=== PATIENT | male | born 1950 | race Two or more races ===

== ENCOUNTER 2024-03-01 09:15 | Day surgery (SDC) | payer OTHER ==
[2024-02-27 10:18] LABS: PH,URINE 6.5 (5.0-8.0); URINE BILIRRUBIN Negative (NEGATIVE); URINE BLOOD Negative; URINE COLOR Yellow; URINE GLUCOSE Negative (NEGATIVE); URINE LEUKOCYTE Small; URINE NITRATE Negative; URINE PROTEIN Negative (NEGATIVE); URINE UROBILINOGEN 0.2 E.U./dl
[2024-02-27 10:22] LABS: URINE BACTERIA 287.2 uL (0.0-1933); URINE RBC 5.6 uL (0.0-20.8); URINE WBC 96.3 uL (0.0-23.2)
[2024-02-27 10:29] LABS: HEMATOCRIT 36.4 % (39.0-48.0); HEMOGLOBIN 12.2 g/dL (13-16.00); MEAN CELL VOLUME 93.5 fL (80.0-100.00); MEAN CORPUSCULAR HEMOGLOBIN 31.5 pg (27.00-32.0); MEAN CORPUSCULAR HGB CONC 33.7 g/dl (32.0-36.0); PLATELET COUNT 325 K/uL (150-450); RED BLOOD COUNT 3.89 M/uL (4.00-6.00)
[2024-02-27 10:50] LABS: INR 1.01; PARTIAL THROMBOPLASTIN TIME 29.7 SECONDS (22.0-34.0); PROTHROMBIN TIME 10.6 SECONDS (9.0-11.5)
[2024-02-27 10:54] LABS: CALCIUM 9.3 mg/dL (8.5-10.1); CREATININE SERUM 1.55 mg/dL (0.70-1.30); GFR 44.05; POTASSIUM 4.43 mEq/L (3.5-5.1)
[2024-02-27 12:42] LABS: URINE APPEARANCE CLEAR
[~2024-03-01 09:15] MED LIST: AVAPRO300 MG PO; BAYER CHILDREN'81 MG PO; GLIPIZIDE XL5 MG PO; GRALISE600 MG PO; METFORMIN HCL500 M3 PO; VERELAN PM200 MG PO
[2024-03-01] MEDS ORDERED: CEFTRIAXONE SODIUM 2,000 MG VIAL ONE (11:05)
[2024-03-01] MEDS ORDERED: VANCOMYCIN HCL 1,000 MG VIAL ONE (11:05)
[2024-03-01] MEDS ORDERED: IOVERSOL 320 MG/ML - 50 ML VIAL IV ONE ×2 (17:25→18:30)
[2024-03-01] MEDS ORDERED: CEFTRIAXONE SODIUM 2,000 MG in 0.9 % SODIUM CHLORIDE 50 ML IV ONE (18:30)
[2024-03-01] MEDS ORDERED: VANCOMYCIN HCL 1,000 MG in 0.9 % SODIUM CHLORIDE 250 ML IV ONE (18:30)
[2024-03-01] MEDS ORDERED: TAMSULOSIN HCL 0.4 MG CAP PO ONE ×2 (20:00→20:14)
== END 2024-03-01 22:20 | disposition home or self-care (01) ==
LOC: CIR.AMB 09:15
PROVIDERS: ATTEND Urology
DX: N20.1 Calculus of ureter (principal); G62.9 Polyneuropathy, unspecified; M19.90 Unspecified osteoarthritis, unspecified site; G47.30 Sleep apnea, unspecified

== ENCOUNTER 2024-06-28 08:47 | Day surgery (SDC) | payer OTHER ==
[2024-06-24 12:35] VITALS: BP 135/74
[2024-06-24 13:08] LABS: PH,URINE 5.5 (5.0-8.0); URINE APPEARANCE Clear; URINE BILIRRUBIN Negative (NEGATIVE); URINE BLOOD Negative; URINE COLOR Yellow; URINE GLUCOSE Negative (NEGATIVE); URINE KETONE Negative (NEGATIVE); URINE LEUKOCYTE Trace; URINE NITRATE Negative; URINE PROTEIN Negative (NEGATIVE); URINE UROBILINOGEN 0.2 E.U./dl
[2024-06-24 13:10] LABS: URINE RBC 4.8 uL (0.0-20.8); URINE WBC 16.1 uL (0.0-23.2)
[2024-06-24 13:12] LABS: URINE BACTERIA 1.2 uL (0.0-1933); URINE CAST 0.61 uL (0.0-1.40)
[~2024-06-28] VITALS: Ht 170.2 cm; Wt 109.8 kg
[2024-06-28 11:09] LABS: RH POSITIVE
[2024-06-28] MEDS ORDERED: CILOSTAZOL100 MG (14:40)
[2024-06-28] MEDS ORDERED: PREGABALIN150 MG (14:40)
[2024-06-28] MEDS ORDERED: CEFTRIAXONE SODIUM 2,000 MG in 0.9 % SODIUM CHLORIDE 50 ML IV ONE (16:30)
[2024-06-28] MEDS ORDERED: IOVERSOL 320 MG/ML - 50 ML VIAL IV ONE (16:30)
[2024-06-28] MEDS ORDERED: MORPHINE SULFATE 2 MG/ML CARTRIDGE IV ONE (18:40)
[2024-06-28] MEDS ORDERED: PHENAZOPYRIDINE HCL 100 MG TABLET PO STA (19:00)
[2024-06-28] MEDS ORDERED: TAMSULOSIN HCL 0.4 MG CAP PO STA (19:00)
== END 2024-06-28 19:55 | disposition home or self-care (01) ==
LOC: CIR.AMB 08:47 → SURH 08:47 → O/R 08:47 → EDSTATUS 11:00 → SURH 11:00 → O/R 18:06 → SURH 18:06 → CIR.AMB 19:55
PROVIDERS: ATTEND Urology
DX: N20.1 Calculus of ureter (principal); N13.1 Hydronephrosis with ureteral stricture, not elsewhere classified

== ENCOUNTER 2024-07-12 11:46 | Inpatient (IN) | payer OTHER ==
[~2024-07-12] VITALS: Ht 170.2 cm; Wt 123.8 kg
[~2024-07-12 11:46] MED LIST changes: +CILOSTAZOL100 MG; +PREGABALIN150 MG
[2024-07-12] MEDS ORDERED: SODIUM CHLORIDE 0.45 % 500 ML IV STA (13:47)
[2024-07-12] MEDS ORDERED: ENOXAPARIN SODIUM 100 MG/ML SYRINGE SUBCUTANEO STA (13:55)
[2024-07-12 14:15] LABS: ABG PH 7.399 (7.35-7.45); ABG PO2 72.3 mmHg (80-100); ABG pCO2 45.1 mmHg (35-45); BASE EXCESS 1.9 mmol/l; BICARBONATE 27.3 mmol/l (23-25); SaO2 94.4 %; Tco2 28.6 mmol/l; o2 21 %
[2024-07-12 14:16] LABS: allen test SATISFACTORY; puncture site RADIAL RIGHT
[2024-07-12 14:25] LABS: HEMATOCRIT 36.5 % (39.0-48.0); HEMOGLOBIN 11.7 g/dL (13-16.00); MEAN CELL VOLUME 94.9 fL (80.0-100.00); MEAN CORPUSCULAR HEMOGLOBIN 30.5 pg (27.00-32.0); MEAN CORPUSCULAR HGB CONC 32.1 g/dl (32.0-36.0); PLATELET COUNT 432 K/uL (150-450); RED BLOOD COUNT 3.84 M/uL (4.00-6.00); RED CELL DISTRIBUTION WIDTH 14.4 % (11.5-14.5)
[2024-07-12 15:07] LABS: ALBUMIN 2.9 gm/dL (3.4-5.0); BILIRUBIN TOTAL 0.47 mg/dL (0.3-1.2); CALCIUM 9.7 mg/dL (8.5-10.1); CREATININE SERUM 1.23 mg/dL (0.70-1.30); GFR 57.36; GLOBULINA 4.6 G/DL (2.4-3.5); POTASSIUM 4.91 mEq/L (3.5-5.1); TOTAL PROTEIN 7.5 gm/dL (6.4-8.2)
[2024-07-12 15:34] LABS: INR 1.07; PROTHROMBIN TIME 11.6 SECONDS (9.0-11.5)
[2024-07-12 16:14] LABS: D DIMER 7.84 MG/L; PARTIAL THROMBOPLASTIN TIME 28.9 SECONDS (22.0-34.0)
[2024-07-12 16:38] LABS: URINE APPEARANCE Cloudy; URINE BILIRRUBIN Negative (NEGATIVE); URINE BLOOD Large; URINE COLOR Yellow; URINE GLUCOSE Negative (NEGATIVE); URINE KETONE Negative (NEGATIVE); URINE LEUKOCYTE Small; URINE NITRATE Negative; URINE PROTEIN 30 (NEGATIVE); URINE UROBILINOGEN 0.2 E.U./dl
[2024-07-12 16:40] LABS: URINE BACTERIA 42.8 uL (0.0-1933); URINE EPITHELIAL CELLS 13.1 uL (0.0-38.8); URINE RBC 891.3 uL (0.0-20.8); URINE WBC 24.1 uL (0.0-23.2)
[2024-07-12 17:34] LABS: URINE CAST 0.15 uL (0.0-1.40)
[2024-07-12] MEDS ORDERED: GABAPENTIN 600 MG TABLET PO SCH (18:07)
[2024-07-12] MEDS ORDERED: PIPERACILLIN/TAZOBACTAM SODIUM 3.375 GM in DEXTROSE 5 % IN WATER 100 ML IV SCH (18:11)
[2024-07-12] MEDS ORDERED: 0.9 % SODIUM CHLORIDE 1,000 ML IV SCH (18:15)
[2024-07-12] MEDS ORDERED: TRAMADOL HCL 50 MG TABLET PO PRN (18:15)
[2024-07-12] MEDS ORDERED: ACETAMINOPHEN 500 MG GEL..CAP PO PRN (18:15)
[2024-07-12 19:57] VITALS: BP 117/60
[2024-07-12] MEDS ORDERED: INSULIN LISPRO 1,000 UNIT/10 ML UNITS SUBCUTANEO PRN (22:15)
[2024-07-12] MEDS ORDERED: DEXTROSE 50 % IN WATER 0.5 G/ML DISP.SYRIN IV PRN (22:15)
[2024-07-12 22:21] VITALS: BP 183/80
[2024-07-13 01:53] VITALS: BP 145/83; O2SAT 97
[2024-07-13] MEDS ORDERED: ENOXAPARIN SODIUM 100 MG/ML SYRINGE SUBCUTANEO SCH (04:00)
[2024-07-13] MEDS ORDERED: VERAPAMIL HCL 120 MG TABLET PO SCH (09:00)
[2024-07-13] MEDS ORDERED: IRBESARTAN 300 MG TABLET PO SCH (09:00)
[2024-07-13] MEDS ORDERED: FAMOTIDINE/PF 20 MG in 0.9 % SODIUM CHLORIDE 8 ML IV PUSH SCH (09:00)
[2024-07-13 10:19] VITALS: BP 112/73; O2SAT 98
[2024-07-13 18:18] VITALS: BP 164/94
[2024-07-13 18:19] VITALS: BP 164/94
[2024-07-14 00:57] VITALS: BP 153/85; O2SAT 97
[2024-07-14 08:17] VITALS: BP 124/82; O2SAT 98
[2024-07-14] MEDS ORDERED: VERAPAMIL HCL 240 MG TABLET.SA PO SCH (09:00)
[2024-07-14 19:10] VITALS: BP 161/86
[2024-07-15 01:18] VITALS: BP 130/80; O2SAT 97
[2024-07-15] MEDS ORDERED: APIXABAN 5 MG TABLET PO SCH (05:00)
[2024-07-15 10:29] VITALS: BP 165/83; O2SAT 96
== END 2024-07-15 16:48 | disposition home or self-care (01) | DRG 690 ==
LOC: ER 11:48 → MEDI 18:18
PROVIDERS: Emergency Medicine; ADMIT Internal Medicine; ATTEND Internal Medicine
PROC: B54DZZZ Ultrasonography of Bilateral Lower Extremity Veins (ICD-10-PCS; principal; 2024-07-12)
DX: N39.0 Urinary tract infection, site not specified (principal); I82.812 Embolism and thrombosis of superficial veins of left lower extremity; L02.31 Cutaneous abscess of buttock; R31.9 Hematuria, unspecified; Z85.46 Personal history of malignant neoplasm of prostate

== ENCOUNTER 2024-08-02 15:00 | Emergency (ER) | payer OTHER ==
[~2024-08-02] VITALS: Ht 170.2 cm; Wt 122.5 kg
[2024-08-02 17:02] LABS: HEMATOCRIT 36.1 % (39.0-48.0); HEMOGLOBIN 11.7 g/dL (13-16.00); MEAN CELL VOLUME 94.3 fL (80.0-100.00); MEAN CORPUSCULAR HEMOGLOBIN 30.5 pg (27.00-32.0); MEAN CORPUSCULAR HGB CONC 32.3 g/dl (32.0-36.0); PLATELET COUNT 413 K/uL (150-450); RED BLOOD COUNT 3.83 M/uL (4.00-6.00); RED CELL DISTRIBUTION WIDTH 14.4 % (11.5-14.5)
[2024-08-02 17:09] LABS: ERYTHROCYTE SEDIMENTATION RATE 52 mm/hr
[2024-08-02 17:22] LABS: INR 1.05; PARTIAL THROMBOPLASTIN TIME 29.2 SECONDS (22.0-34.0); PROTHROMBIN TIME 11.4 SECONDS (9.0-11.5)
[2024-08-02 17:49] LABS: CALCIUM 9.5 mg/dL (8.5-10.1); CREATININE SERUM 1.36 mg/dL (0.70-1.30); GFR 51.08; POTASSIUM 4.78 mEq/L (3.5-5.1)
[2024-08-02 17:53] LABS: C-REACTIVE PROTEIN 1.43 MG/DL (0.00-0.29)
[2024-08-02] MEDS ORDERED: OxyCODONE HCL/APAP UD (PERCOCET) PO ONE (19:15)
== END 2024-08-02 19:33 | disposition home or self-care (01) ==
LOC: ER 15:01
PROVIDERS: Emergency Medicine
DX: M79.672 Pain in left foot (principal)

== ENCOUNTER 2025-02-07 10:18 | Outpatient (CLI) | payer OTHER | END 2025-02-07 10:20 | disposition home or self-care (01) | LOC: NUCLEAR 10:18 | PROVIDERS: ATTEND Urology | DX: C64.2 Malignant neoplasm of left kidney, except renal pelvis (principal) | CPT/HCPCS: 78707; A9539 ==

== ENCOUNTER 2025-07-28 06:18 | Outpatient (CLI) | payer OTHER ==
[2025-07-28 07:44] LABS: BASO % 1.7 % (0.1-1.2); EOS # 0.36 (0.04-0.54); EOS % 6.9 % (0.7-7.0); LYMPH # 1.26 (1.18-3.74); LYMPH % 24.0 % (19.3-53.1); MEAN PLATELET VOLUME 9.50 fl (9.4-12.4); MONO # 0.56 (0.24-0.82); MONO % 10.7 % (4.7-12.5); NEUT # 2.95 (1.56-6.13); NEUT % 56.3 % (34.0-71.1); RED CELL DISTRIBUTION WIDTH 13.2 % (11.6-14.4)
[2025-07-28 08:16] LABS: ALT/SGPT 16.0 U/L (12-78); AST/SGOT 6.0 U/L (15-37); BILIRUBIN TOTAL 0.35 mg/dL (0.3-1.2); BUN CREA RATIO 21.0 (7.0-25.0); CREATININE SERUM 1.13 mg/dL (0.70-1.30); GFR 63.09; GLOBULINA 3.5 G/DL (2.4-3.5); GLUCOSE FASTING 93.0 mg/dL (65-100); LDH 109.0 U/L (87-241); OSMOLALITY SERUM 285.0 MOSM/KG (275-295)
[2025-07-29 10:10] LABS: HOMOCYSTEINE 12.0 umol/L (0.0-19.2)
[2025-07-29 14:11] LABS: ANTI CARDIO IGA < 9 APL U/mL (0-11); ANTI CARDIO IGG < 9 GPL U/mL (0-14); ANTI CARDIO IGM < 9 MPL U/mL (0-12)
[2025-07-30 10:07] LABS: BETA-2-MICROGLOBULINA 4.2 mg/L (0.6-2.4)
[2025-07-31 00:10] LABS: ANTI-THROMBIN III 124 % (75-135); PROTEIN C ACTIVITY 88 % (73-180); PROTEIN S ACTIVITY 82 % (63-140)
== END 2025-07-28 06:25 | disposition home or self-care (01) ==
LOC: LAB 06:18
PROVIDERS: ATTEND Internal Medicine Hematology & Oncology
DX: N20.0 Calculus of kidney (principal); C64.2 Malignant neoplasm of left kidney, except renal pelvis; I10 Essential (primary) hypertension; E11.9 Type 2 diabetes mellitus without complications; E11.40 Type 2 diabetes mellitus with diabetic neuropathy, unspecified; D50.8 Other iron deficiency anemias; R74.02 Elevation of levels of lactic acid dehydrogenase [LDH]; K76.89 Other specified diseases of liver; D68.59 Other primary thrombophilia; D68.51 Activated protein C resistance; E72.12 Methylenetetrahydrofolate reductase deficiency; E72.11 Homocystinuria